=== PATIENT | female | born 1990 | race American Indian/Alaskan Native ===

== ENCOUNTER 2021-10-15 14:23 | Emergency (ER) | payer BC ==
--- NOTE | 2021-10-15 15:23 | XRay Report ---
LEFT KNEE 3 VIEW(S) INDICATION / CLINICAL INFORMATION: knee pain for 2 weeks COMPARISON: None available. FINDINGS: BONES / JOINT(S): No acute fracture or subluxation. No significant arthritis. Moderate joint effusion in the suprapatellar recess. SOFT TISSUES: Mild anterior soft tissue swelling. ADDITIONAL FINDINGS: None. IMPRESSION: 1. Moderate joint effusion. Signer Name: Sydnee Herman MD Signed: 10/15/2021 3:19 PM Workstation Name: [employer]
--- NOTE | 2021-10-15 15:42 | Emergency Department Report ---
<AUDREY MEDLEY - Last Filed: 10/15/21 15:38> ED Extremity Problem HPI - General Chief complaint: Extremity Problem,Nontraumatic Stated complaint: L KNEE PAIN Time Seen by Provider: 10/15/21 14:44 Source: patient Mode of arrival: Wheelchair Limitations: No Limitations - History of Present Illness Initial comments: 31-year-old obese female presents to the emergency room complaining of 2-week history of left knee pain. Patient denies any injury. She states that the pain is worse with movement. She reports heat has helped. 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 She states ice makes it worse. This is the first time she has been seen for it. She reports she has been taken ibuprofen 800s without much relief. MD Complaint: extremity pain Onset/Timin -: week(s) Location: left, knee History of Same: No -: Yes arthralgia Severity scale (0 -10): 8 Quality: stabbing, aching, sharp Consistency: intermittent Improves with: immobilization Worsens with: walking Associated Symptoms: denies other symptoms - Related Data Previous Rx's Medication Instructions Recorded Last Taken Type Naproxen [EC-Naproxen] 500 mg PO Q12H PRN #20 10/15/21 Unknown Rx Allergies Allergy/AdvReac Type Severity Reaction Status Date / Time No Known Allergies Allergy Verified 10/15/21 14:25 ED Review of Systems Comment: All other systems reviewed and negative ED Past Medical Hx - Medications Home Medications: Home Medications Medication Instructions Recorded Confirmed Last Taken Type Naproxen [EC-Naproxen] 500 mg PO Q12H PRN #20 10/15/21 Unknown Rx ED Physical Exam - General Limitations: No Limitations General appearance: alert, in no apparent distress - Head Head exam: Present: atraumatic, normocephalic - Eye Eye exam: Present: normal appearance, EOMI - ENT ENT exam: Present: normal external ear exam - Neck Neck exam: Present: normal inspection, full ROM - Respiratory Respiratory exam: Absent: respiratory distress - Cardiovascular Cardiovascular Exam: Present: regular rate, normal rhythm. Absent: systolic murmur, diastolic murmur, rubs, gallop - Expanded Lower Extremity Exam Left Upper Leg exam: Present: normal inspection, full ROM Knee exam: Present: normal inspection, full ROM. Absent: tenderness, swelling, abrasion, deformity, crepidus, dislocation, erythema Lower Leg exam: Present: normal inspection, full ROM. Absent: tenderness, swelling, abrasion Ankle exam: Present: full ROM. Absent: tenderness, swelling - Back Exam Back exam: Present: normal inspection, full ROM - Neurological Exam Neurological exam: Present: alert, oriented X3 - Psychiatric Psychiatric exam: Present: normal affect, normal mood - Skin Skin exam: Present: warm, dry, intact, normal color. Absent: rash ED Medical Decision Making - Radiology Data Radiology results: report reviewed [facility] [address] [place] [address] XRay Report Signed Patient: ADALID CADENA MR#: [id number] : 1990 Acct:[id number] Age/Sex: 31 / F ADM Date: 10/15/21 Loc: ED Attending Dr: Ordering Physician: ROSENDA RODRIGUES Date of Service: 10/15/21 Procedure(s): XR knee 3V LT Accession Number(s): [id number] cc: ROSENDA RODRIGUES Fluoro Time In Minutes: LEFT KNEE 3 VIEW(S) INDICATION / CLINICAL INFORMATION: knee pain for 2 weeks COMPARISON: None available. FINDINGS: BONES / JOINT(S): No acute fracture or subluxation. No significant arthritis. Moderate joint effusion in the suprapatellar recess. SOFT TISSUES: Mild anterior soft tissue swelling. ADDITIONAL FINDINGS: None. IMPRESSION: 1. Moderate joint effusion. Signer Name: Sydnee Herman MD Signed: 10/15/2021 3:19 PM Workstation Name: [id number] Transcribed By: DT Dictated By: Blake Herman MD Electronically Authenticated By: Blake Herman MD Signed Date/Time: 10/15/21 1519 DD/ 1518 TD/TT: Print Cancel - Medical Decision Making 31-year-old obese female presents to the emergency room complaining of 2-week history of left knee pain. Patient denies any injury. She states that the pain is worse with movement. She reports heat has helped. 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 She states ice makes it worse. This is the first time she has been seen for it. She reports she has been taken ibuprofen 800s without much relief. X-ray of left knee shows a moderate knee effusion. No bony abnormalities. Patient be placed in a knee immobilizer short leg and a referral to orthopedist. Patient can take Tylenol ibuprofen for pain management. ED Disposition Clinical Impression: Knee effusion, left Disposition: 01 HOME / SELF CARE / HOMELESS Is pt being admited?: No Does the pt Need Aspirin: No Condition: Stable Instructions: Knee Effusion, [id number] Prescriptions: Naproxen [EC-Naproxen] 500 mg PO Q12H PRN #20 PRN Reason: Pain , Severe (7-10) Referrals: [facility] [Other] - 3-5 Days THU MALDONADO MD [Staff Physician] - 3-5 Days Forms: Work/School Release Form(ED) Time of Disposition: 16:06 <GONZÁLEZ GONZALEZ - Last Filed: 10/15/21 20:48> ED Review of Systems ROS: Stated complaint: L KNEE PAIN Other details as noted in HPI ED Course Vital Signs 10/15/21 15:47 Temperature 98.0 F Pulse Rate 91 H Respiratory 16 Rate Blood Pressure 145/96 [Left] O2 Sat by Pulse 100 Oximetry ED Medical Decision Making - Medical Decision Making I have reviewed the PA/MARK UP DESIGNER's note and plan of care. I was available for consultation as needed at all times during the patient's visit in the emergency department but was not consulted on this case. Critical care attestation.: If time is entered above; I have spent that time in minutes in the direct care of this critically ill patient, excluding procedure time.
[2021-10-15 15:53] VITALS: BP 145/96
== END 2021-10-15 16:27 | disposition home or self-care (01) ==
LOC: ED 14:23
DX: M25.462 Effusion, left knee (principal)
CPT/HCPCS: 99283